=== PATIENT | male | born 1995 | race Caucasian/White ===

== ENCOUNTER → 2018-06-21 | Outpatient (CLI) | payer OTHER ==
[2016-02-21 16:51] VITALS: BP 154/79
[~2018-06-21] MED LIST: AMOX875T PO; IOHEXOL 240 MG/ML 50ML VIAL. ONE; IOHEXOL 300 MG/ML 75 ML VIAL. IV ONE; MECL25TA3 PO; METH-37 PO; NAPR-514 PO
--- NOTE | 2018-06-21 16:34 | RAD ---
CT of the pelvis with contrast 06/21/2018 INDICATION: Left lower quadrant abdominal pain 3 weeks. COMPARISON STUDY: None. TECHNIQUE: Multidetector CT imaging of the abdomen pelvis was performed following the administration of IV contrast. FINDINGS: The liver is diffusely low in attenuation. A somewhat nonspecific finding most commonly reflects hepatic steatosis. Gallbladder, spleen, adrenal glands, and pancreas are unremarkable. Kidneys are unremarkable. There is no evidence of bowel obstruction. No evidence of acute inflammatory change involving visualized bowel is identified. The index is grossly unremarkable. No free fluid or free air is seen in the abdomen or pelvis. The bladder is grossly unremarkable in appearance. Multiple small lymph nodes are noted in the right lower quadrant mesentery, slightly prominent in number, measuring approximately 5 to 6 mm in diameter. . Other scattered small lymph nodes are seen in the mesentery. No acute osseous changes are identified. IMPRESSION: 1. Mildly prominent mesenteric lymph nodes, most prominently in the right lower quadrant in a pattern which could reflect mesenteric adenitis. 2. Low-attenuation of the liver, which is nonspecific, but most commonly reflect hepatic steatosis. CT DOSING PQRS STATEMENT: One or more of the following individualized dose reduction techniques were utilized for this examination: 1. Automated exposure control 2. Adjustment of the mA and/or kV according to patient size 3. Use of iterative reconstruction technique Electronically signed by: Rodríguez Hale MD (06/21/2018 4:31 PM) [id number]
== END | disposition home or self-care (01) ==
LOC: CT 14:11
PROVIDERS: ATTEND Family Medicine
DX: K76.0 Fatty (change of) liver, not elsewhere classified (principal)
CPT/HCPCS: 74177; Q9967